=== PATIENT | female | born 1990 | race Caucasian/White ===

== ENCOUNTER 2018-09-25 03:17 | Emergency (ER) | payer BC, OTHER ==
[~2018-09-25] VITALS: Ht 167.6 cm; Wt 90.2 kg
[2018-09-25] MEDS ORDERED: PANTOPRAZOLE 40 MG IV IVPush ONE (03:30)
[2018-09-25] MEDS ORDERED: SODIUM CHLORIDE 0.9% 1,000ML IVBOLUS ONE (03:30)
[2018-09-25] MEDS ORDERED: PROCHLORPERAZINE 5 MG/ML, 2ML IVPush ONE (03:30)
--- NOTE | 2018-09-25 03:31 | NUR ---
FIRST CONTACT WITH PT. PT C/O EPIGASTRIC ABD PAIN WITH N/V/D X6 HOURS "I HAVE HAD SCANS BEFORE AND THEY DO NOT FIND ANYTHING." PT'S AOX4. RESPS EVEN AND UNLABORED. PT VOMITTING IN ROOM X A FEW TIMES. EDMD AT BEDSIDE TO EVALUATE AT THIS TIME. BP/SPO2 MONITORS IN PLACE. CALL LIGHT WITHIN REACH.
--- NOTE | 2018-09-25 03:32 | NUR ---
PT AMB TO BR AND BACK TO ROOM WITH STEADY GAIT.
[2018-09-25] MEDS ORDERED: PANTOPRAZOLE 40 MG IV ONE (03:35)
[2018-09-25] MEDS ORDERED: PROCHLORPERAZINE 5 MG/ML, 2ML ONE (03:35)
[2018-09-25 03:43] LABS: MEAN CORPUSCULAR HEMOGLOBIN 27.6 pg (27.0-34.8); MEAN CORPUSCULAR HGB CONC 32.9 g/dL (32.4-35.8); MEAN CORPUSCULAR VOLUME 83.9 fL (80-100); MEAN PLATELET VOLUME 9.1 fL (7.4-10.4); PLATELET COUNT 357 x10^3/uL (130-400); RED BLOOD COUNT 5.15 x10^6/uL (3.82-5.3); RED CELL DISTRIBUTION WIDTH 15.6 % (9.6-15.2)
[2018-09-25 03:55] LABS: ANION GAP 11 mmol/L (5-15); CALCIUM 9.5 mg/dL (8.5-10.1); CHLORIDE 110 mmol/L (98-107); CREATININE 0.89 mg/dL (0.55-1.02)
--- NOTE | 2018-09-25 03:56 | NUR ---
PT MEDICATED PER EMAR. PT TOELRATED WELL.
--- NOTE | 2018-09-25 04:10 | NUR ---
NS INFUSING AT THIS TIME. PT TOLERATED WELL.
--- NOTE | 2018-09-25 04:44 | NUR ---
PT STATES " I HAVE NAUSEA STILL AND GIVE ME MORE MED" EDMD NOTIFIED.
[2018-09-25] MEDS ORDERED: ONDANSETRON 2MG/ML, 2ML IVPush ONE ×2 (05:00→05:30)
[2018-09-25] MEDS ORDERED: ONDANSETRON 2MG/ML, 2ML ONE ×2 (05:05→05:19)
[2018-09-25 05:07] VITALS: BP 141/101
--- NOTE | 2018-09-25 05:11 | NUR ---
PT MEDICATED PER EMAR FOR NAUSEA. PT TOLERATED WELL.
--- NOTE | 2018-09-25 05:28 | NUR ---
TASK RN: First contact with pt. Pt requesting additional nausea medications prior to d/c. Provided medications per EMAR. Pt appreciative. SHANIA.
--- NOTE | 2018-09-25 05:29 | NUR ---
Patient given discharge instructions and they have confirmed that they understand the instructions. Patient ambulatory with steady gait. Pt left with dc paperwork, prescription, and all personal belongings. NADN. Pt encouraged to return to ED if symptoms worsen or change.
[2018-09-25 05:42] LABS: BASOPHILS # (AUTO) 0.07 x10^3/uL (0-0.1); BASOPHILS % (AUTO) 0 % (0-1); EOSINOPHILS # (AUTO) 0.05 x10^3/uL (0-0.4); EOSINOPHILS % (AUTO) 0 % (1-7); LYMPHOCYTES # (AUTO) 3.68 x10^3/uL (1-3.4); LYMPHOCYTES % (AUTO) 20 % (22-44); MD SCAN; MONOCYTES # (AUTO) 0.74 x10^3/uL (0.2-0.8); MONOCYTES % (AUTO) 4 % (2-9); NEUTROPHILS # (AUTO) 14.27 x10^3/uL (1.8-6.8); NEUTROPHILS % (AUTO) 76 % (42-75)
== END 2018-09-25 05:32 | disposition home or self-care (01) ==
LOC: ED 05:29
DX: R11.2 Nausea with vomiting, unspecified (principal); R10.13 Epigastric pain
CPT/HCPCS: 36415; 80048; 83690; 83735; 85025; 96361; 96374; 96375; 99283; C9113; J0780; J2405; J7030